=== PATIENT | male | born 1990 | race Caucasian/White ===

== ENCOUNTER 2016-08-05 18:20 | Emergency (ER) | payer SELFPAY ==
[~2016-08-05] VITALS: Ht 175.3 cm; Wt 81.6 kg
[2016-08-05 18:44] VITALS: BP 146/86
--- NOTE | 2016-08-05 19:51 | NUR ---
TO ER OF2
--- NOTE | 2016-08-05 20:11 | NUR ---
Patient being evaluated by physician.
[2016-08-05] MEDS ORDERED: NEOMYCIN/POLYMYXIN/BACITRACIN 0.9 GM/1 PKT TP ONE (20:33)
[2016-08-05 20:55] VITALS: BP 137/78
== END 2016-08-05 20:55 | disposition home or self-care (01) ==
LOC: MED 18:20
DX: S90.112A Contusion of left great toe without damage to nail, initial encounter (principal); R03.0 Elevated blood-pressure reading, without diagnosis of hypertension; W20.8XXA Other cause of strike by thrown, projected or falling object, initial encounter; Y93.89 Activity, other specified; Y92.89 Other specified places as the place of occurrence of the external cause; Y99.8 Other external cause status
CPT/HCPCS: 73630; 90471; 90715; 99284

== ENCOUNTER 2017-11-21 10:04 | Emergency (ER) | payer SELFPAY ==
[~2017-11-21] VITALS: Ht 175.3 cm; Wt 103.0 kg
--- NOTE | 2017-11-21 10:14 | NUR ---
PT AMBULATES TO BED 9
[2017-11-21 10:18] VITALS: BP 137/93
--- NOTE | 2017-11-21 10:26 | NUR ---
PATIENT PRESENTS TO ED WITH LEFT GROIN PULSATING PAIN/MILD SWELLING X 2 DAYS---DENIES INJURY/TRAUMA OR SHAVING SURROUND SITE . PT STATES . DENIES N/V/D; SKIN IS PINK/WARM/DRY; AAOX4 WITH EVEN AND STEADY GAIT; LUNGS CLEAR BL; HR EVEN AND REGULAR; PT DENIES ANY FEVER, CP, SOB, OR COUGH AT THIS TIME; PATIENT STATES PAIN OF 4/10 AT THIS TIME; VSS; PATIENT POSITIONED FOR COMFORT; HOB ELEVATED; BEDRAILS UP X2; BED DOWN. ER MD MADE AWARE OF PT STATUS.
--- NOTE | 2017-11-21 10:36 | NUR ---
DR GALLOWAY EVALUATING AT BEDSIDE
[2017-11-21] MEDS ORDERED: KETOROLAC 60 MG/2 ML VIAL IM ONE (10:45)
[2017-11-21 11:07] VITALS: BP 141/89
== END 2017-11-21 11:07 | disposition home or self-care (01) ==
LOC: MED 10:34
DX: S39.011A Strain of muscle, fascia and tendon of abdomen, initial encounter (principal); X58.XXXA Exposure to other specified factors, initial encounter; Y93.89 Activity, other specified; Y92.89 Other specified places as the place of occurrence of the external cause; Y99.8 Other external cause status
CPT/HCPCS: 96372; 99283; J1885